=== PATIENT | male | born 1975 | race Caucasian/White ===

== ENCOUNTER 2022-08-06 09:05 | Emergency (ER) | payer SELFPAY ==
[~2022-08-06] VITALS: Ht 152.4 cm; Wt 64.9 kg
[2022-08-06 09:11] VITALS: BP 138/95
--- NOTE | 2022-08-06 09:22 | NUR ---
pt to room 7, ambulatory and steady gait
--- NOTE | 2022-08-06 09:36 | NUR ---
Patient being evaluated by physician at bedside.
[2022-08-06] MEDS ORDERED: ACYC400T14 PO (10:04)
[2022-08-06] MEDS ORDERED: CEPH-588 PO (10:04)
--- NOTE | 2022-08-06 10:16 | NUR ---
SKYLAR NOLAN AT BEDSIDE FOR EVAL
--- NOTE | 2022-08-06 10:26 | NUR ---
Patient discharged with v/s stable. Written and verbal after care instructions ABOUT RASH given and explained. Patient alert, oriented and verbalized understanding of instructions. Ambulatory with steady gait. All questions addressed prior to discharge. ID band removed. Patient advised to follow up with PMD. Rx of KELFEX, ACYCLOVIR given. Patient educated on indication of medication including possible reaction and side effects. Opportunity to ask questions provided and answered.
== END 2022-08-06 10:26 | disposition home or self-care (01) ==
LOC: MED 09:05
DX: R21 Rash and other nonspecific skin eruption (principal)
CPT/HCPCS: 99283; Q0163